=== PATIENT | female | born 1990 ===

== ENCOUNTER 2016-12-12 01:13 | Emergency (ER) | payer OTHER ==
[2016-12-12 01:40] VITALS: O2SAT 99
[2016-12-12 02:18] LABS: BASO # 0.1 K/uL (0.0-0.2); EOS # 0.2 K/uL (0.0-0.7); EOS % 2.9 % (0.0-4.0); HEMATOCRIT 42.6 % (34.0-47.0); LYMPH # 2.5 K/uL (1.0-4.3); LYMPH % 35.4 % (20.0-40.0); MEAN CELL VOLUME 94.8 fL (81.0-99.0); MEAN CORPUSCULAR HEMOGLOBIN 31.6 pg (27.0-31.0); MEAN CORPUSCULAR HGB CONC 33.3 g/dL (33.0-37.0); MONO # 0.4 K/uL (0.0-0.8); RED CELL DISTRIBUTION WIDTH 13.9 % (11.5-14.5)
[2016-12-12 02:23] LABS: URINE BACTERIA RARE (<OCC); URINE BILIRUBIN NEGATIVE (NEGATIVE); URINE BLOOD 2+ (NEGATIVE); URINE COLOR Straw (YELLOW); URINE GLUCOSE (UA) NORMAL (Normal); URINE KETONE NEGATIVE (NEGATIVE); URINE LEUKOCYTE ESTERASE NEG Leu/uL (Negative); URINE PROTEIN NEGATIVE (NEGATIVE); URINE UROBILINOGEN NORMAL mg/dL (0.2-1.0); WBC URINE < 1 /hpf (0-5)
[2016-12-12 02:25] LABS: CHLORIDE 104 mmol/L (98-107); POTASSIUM 3.9 mmol/L (3.6-5.2); SODIUM 146 mmol/L (132-148)
[2016-12-12 02:27] LABS: AST/SGOT 57 U/L (14-36); BILIRUBIN,TOTAL 0.5 mg/dL (0.2-1.3); CARBON DIOXIDE 22 mmol/L (22-30); GFR AFRICAN-AMERICAN > 60
[2016-12-12 02:28] LABS: ALB/GLOB RATIO 1.4 (1.0-2.1); ALKALINE PHOSPHATASE 81 U/L (38-126); ALT/SGPT 68 U/L (9-52); BLOOD UREA NITROGEN 7 mg/dL (7-17); CALCIUM 8.8 mg/dl (8.6-10.4); GLUCOSE,RANDOM 99 mg/dL (65-105); TOTAL PROTEIN 8.5 g/dL (6.3-8.3)
[2016-12-12 02:29] LABS: ALCOHOL SERUM 199 mg/dl (0-10)
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
[2016-12-12] MEDS ORDERED: cefTRIAXone (Rocephin) 250 mg Inj IM STA (03:30)
[2016-12-12] MEDS ORDERED: Emtricitabine-Tenofovir 200 mg-300 mg Tab PO STA (03:30)
[2016-12-12] MEDS ORDERED: Emtricitabine-Tenofovir 200 mg-300 mg Tab PO NR (03:30)
[2016-12-12 05:56] VITALS: BP 124/78; PULSE 92; RESP 16; TEMP 98.3
== END 2016-12-12 03:45 | disposition home or self-care (01) ==
LOC: C.ER 01:13
DX: T76.21XA Adult sexual abuse, suspected, initial encounter (principal)
CPT/HCPCS: 80053; 80074; 80320; 81001; 85025; 86703; 96372; 99285; J0696